=== PATIENT | female | born 1960 | race Caucasian/White ===

== ENCOUNTER 2019-08-30 10:30 | Outpatient (RCR) | payer OTHER | END 2019-08-30 11:00 | disposition still patient (30) | LOC: PT 10:30 | DX: M77.9 Enthesopathy, unspecified (principal) ==

== ENCOUNTER → 2022-08-11 | Outpatient (CLI) | payer OTHER | LOC: MAMMO 06:59 | DX: N63.24 Unspecified lump in the left breast, lower inner quadrant (principal) ==

== ENCOUNTER → 2024-05-05 | Outpatient (CLI) | payer OTHER | LOC: MAMMO 08:46 | DX: Z12.31 Encounter for screening mammogram for malignant neoplasm of breast (principal); N63.20 Unspecified lump in the left breast, unspecified quadrant ==